=== PATIENT | male | born 1965 | race Caucasian/White ===

== ENCOUNTER 2016-09-03 17:47 | Emergency (ER) | payer MEDICARE ==
[2014-09-26 12:35] VITALS: BMI 14.8
[~2016-09-03 17:47] MED LIST: CYMBALTA60 MG PO; HUMULIN 70100 UNIT/1; HYDROCODONE-APA1 TAB PO; LIPITOR10 MG PO; PAXIL20 MG PO; PRILOSEC20 MG PO; TIMOPTIC 0.5 % O5 ML EACH EYE; TOPROL XL50 MG PO; XALATAN 0.0052.5 ML EACH EYE; ZOFRAN ODT4 MG/UDTAB PO
[2016-09-03 18:41] LABS: BASOPHILS 0.1 % (0.0-2.0); EOSINOPHILS 1.4 % (0-7); HEMOGLOBIN 16.2 g/dL (13.5-17.5); IMMATURE GRANULOCYTES 0.3 % (0-5); LYMPHOCYTES 5.8 % (15-50); MCH 35.8 pg (26.0-34.0); MCHC 33.8 g/dL (31.0-37.0); MCV 106.2 fL (80.0-100.0); MEAN PLATELET VOLUME 10.7 fL (7.4-10.4); MONOCYTES 5.3 % (2-11); NEUTROPHILS 87.1 % (40-80); PLATELET COUNT 198 10x3/uL (130-400); RBC 4.52 10x6/uL (4.20-6.10); RDW 12.8 % (11.5-14.5); WBC 10.4 10x3/uL (4.8-10.8)
[2016-09-03 19:34] LABS: ALBUMIN 3.8 g/dL (3.4-5.0); ANION GAP 16.6 mmol/L (8-16); BILIRUBIN - TOTAL 0.26 mg/dL (0.2-1.3); CALCIUM 9.1 mg/dL (8.5-10.1); CARBON DIOXIDE 28.6 mmol/L (21.0-32.0); CREATININE - SERUM 2.4 mg/dL (0.6-1.3); POTASSIUM - SERUM 4.2 mmol/L (3.5-5.1); PROTEIN - SERUM 7.4 g/dL (6.4-8.2)
== END 2016-09-03 21:40 | disposition home or self-care (01) ==
LOC: D.ER 17:47
PROVIDERS: Emergency Medicine
DX: E11.649 Type 2 diabetes mellitus with hypoglycemia without coma (principal); Z79.4 Long term (current) use of insulin; C15.9 Malignant neoplasm of esophagus, unspecified; N18.9 Chronic kidney disease, unspecified; I12.9 Hypertensive chronic kidney disease with stage 1 through stage 4 chronic kidney disease, or unspecified chronic kidney disease

== ENCOUNTER 2016-11-15 10:06 | Emergency (ER) | payer MEDICARE ==
[2014-09-26 12:35] VITALS: BMI 14.8
== END 2016-11-15 11:17 | disposition home or self-care (01) ==
LOC: D.ER 10:06
DX: K94.29 Other complications of gastrostomy (principal); E10.9 Type 1 diabetes mellitus without complications; Z79.4 Long term (current) use of insulin; C15.9 Malignant neoplasm of esophagus, unspecified; D53.9 Nutritional anemia, unspecified; I12.9 Hypertensive chronic kidney disease with stage 1 through stage 4 chronic kidney disease, or unspecified chronic kidney disease; N18.9 Chronic kidney disease, unspecified

== ENCOUNTER 2016-11-15 11:51 | Emergency (ER) | payer MEDICARE ==
[2014-09-26 12:35] VITALS: BMI 14.8
== END 2016-11-15 13:19 | disposition home or self-care (01) ==
LOC: D.ER 11:51
DX: K94.29 Other complications of gastrostomy (principal); C15.9 Malignant neoplasm of esophagus, unspecified; I12.9 Hypertensive chronic kidney disease with stage 1 through stage 4 chronic kidney disease, or unspecified chronic kidney disease; N18.9 Chronic kidney disease, unspecified; D53.9 Nutritional anemia, unspecified

== ENCOUNTER 2016-12-15 19:28 | Emergency (ER) | payer MEDICARE ==
[2014-09-26 12:35] VITALS: BMI 14.8
[2016-12-15 20:10] LABS: BASOPHILS 0.1 % (0-2); EOSINOPHILS 0.2 % (0-7); HEMATOCRIT 46.8 % (42.0-54.0); IMMATURE GRANULOCYTES 0.2 % (0-5); LYMPHOCYTES 10.1 % (15-50); MCH 35.6 pg (26.0-34.0); MCHC 34.2 g/dL (31.0-37.0); MEAN PLATELET VOLUME 10.5 fL (7.4-10.4); MONOCYTES 4.6 % (2-11); NEUTROPHILS 84.8 % (40-80); RDW 12.7 % (11.5-14.5); WBC 9.5 10x3/uL (4.8-10.8)
[2016-12-15 20:21] LABS: PLATELET COUNT 337 10x3/uL (130-400)
[2016-12-15 20:27] LABS: ALBUMIN 3.4 g/dL (3.4-5.0); ALKALINE PHOSPHATASE 128 U/L (46-116); ALT (SGPT) 37 U/L (10-68); BILIRUBIN - TOTAL 0.39 mg/dL (0.2-1.3); CALC OSMOLALITY 289 mosm/kg (275-300); CALCIUM 9.6 mg/dL (8.5-10.1); CARBON DIOXIDE 26.4 mmol/L (21.0-32.0); CHLORIDE - SERUM 100 mmol/L (98-107); CREATININE - SERUM 2.5 mg/dL (0.6-1.3); POTASSIUM - SERUM 3.3 mmol/L (3.5-5.1); PROTEIN - SERUM 8.6 g/dL (6.4-8.2); SODIUM 139 mmol/L (136-145); UREA NITROGEN 28 mg/dL (7-18); eGFR NON AFRICAN AMERICAN 29 mL/min (90-120)
[2016-12-15 20:28] LABS: GLUCOSE 204 mg/dL (74-106)
[2016-12-15 20:32] LABS: AMYLASE - SERUM 185 U/L (25-115); LIPASE 357 U/L (73-393)
[2016-12-15 20:38] LABS: UDS - AMPHET NEGATIVE QUAL (NEGATIVE); UDS - BARB POSITIVE QUAL (NEGATIVE); UDS - BENZO NEGATIVE QUAL (NEGATIVE); UDS - COCAINE NEGATIVE QUAL (NEGATIVE); UDS - METH NEGATIVE QUAL (NEGATIVE); UDS - OPIATE NEGATIVE QUAL (NEGATIVE); UDS - PCP NEGATIVE QUAL (NEGATIVE); UDS - THC POSITIVE QUAL (NEGATIVE)
[2016-12-15 20:40] LABS: TROPONIN-I < 0.017 ng/mL (0.000-0.060)
[2016-12-15 20:42] LABS: APPEARANCE CLEAR (CLEAR); BILIRUBIN NEGATIVE (NEGATIVE); COLOR YELLOW (YELLOW); GLUCOSE 250 mg/dL (NEGATIVE); KETONE SMALL mg/dL (NEGATIVE); LEUKOCYTE ESTERASE TRACE (NEGATIVE); NITRITE NEGATIVE (NEGATIVE); PROTEIN 3+ mg/dL (NEGATIVE); UROBILINOGEN NORMAL (NORMAL)
[2016-12-15 20:43] LABS: BACTERIA FEW /hpf (NONE SEEN); EPITHELIAL CELLS 0-5 /hpf (0-5); RED CELLS - URINE 0-5 /hpf (0-5); WHITE CELLS - URINE 0-5 /hpf (0-5)
== END 2016-12-15 23:50 | disposition home or self-care (01) ==
LOC: D.ER 19:28
PROVIDERS: Family Medicine
DX: R10.9 Unspecified abdominal pain (principal); K52.9 Noninfective gastroenteritis and colitis, unspecified; C15.9 Malignant neoplasm of esophagus, unspecified; D53.9 Nutritional anemia, unspecified; I12.9 Hypertensive chronic kidney disease with stage 1 through stage 4 chronic kidney disease, or unspecified chronic kidney disease; N18.9 Chronic kidney disease, unspecified

== ENCOUNTER 2017-02-22 17:42 | Emergency (ER) | payer MEDICARE ==
[2014-09-26 12:35] VITALS: BMI 14.8
[2017-02-22 18:48] LABS: BASOPHILS 0.2 % (0-2); EOSINOPHILS 0.1 % (0-7); HEMATOCRIT 51.5 % (42.0-54.0); HEMOGLOBIN 17.4 g/dL (13.5-17.5); LYMPHOCYTES 8.7 % (15-50); MCH 35.2 pg (26.0-34.0); MCHC 33.8 g/dL (31.0-37.0); MCV 104.3 fL (80.0-100.0); MEAN PLATELET VOLUME 11.1 fL (7.4-10.4); MONOCYTES 4.5 % (2-11); NEUTROPHILS 86.5 % (40-80); PLATELET COUNT 272 10x3/uL (130-400); RBC 4.94 10x6/uL (4.20-6.10); RDW 12.8 % (11.5-14.5); WBC 9.5 10x3/uL (4.8-10.8)
[2017-02-22 19:03] LABS: ALBUMIN 4.3 g/dL (3.4-5.0); ANION GAP 21.5 mmol/L (8-16); BILIRUBIN - TOTAL 0.7 mg/dL (0.2-1.3); CALCIUM 10.1 mg/dL (8.5-10.1); CARBON DIOXIDE 24.8 mmol/L (21.0-32.0); CREATININE - SERUM 2.9 mg/dL (0.6-1.3); POTASSIUM - SERUM 3.3 mmol/L (3.5-5.1); PROTEIN - SERUM 9.2 g/dL (6.4-8.2)
== END 2017-02-22 21:30 | disposition home or self-care (01) ==
LOC: D.ER 17:42
PROVIDERS: Physician Assistant Medical
DX: E87.6 Hypokalemia (principal); R10.9 Unspecified abdominal pain; R11.10 Vomiting, unspecified; I10 Essential (primary) hypertension; C15.9 Malignant neoplasm of esophagus, unspecified